=== PATIENT | female | born 1990 | race Asian ===

== ENCOUNTER 2019-12-15 16:56 | Emergency (ER) | payer MEDICAID ==
[~2019-12-15] VITALS: Ht 157.5 cm; Wt 58.2 kg
[2019-12-15 16:58] VITALS: BP 159/107
[2019-12-15] MEDS ORDERED: LISINOPRIL 20 MG TAB PO ONE (17:45)
[2019-12-15] MEDS ORDERED: LISINOPRIL 20 MG TAB ONE (17:52)
[2019-12-15 18:10] VITALS: BP 159/94
== END 2019-12-15 18:10 | disposition home or self-care (01) ==
LOC: MED 16:56
DX: R03.0 Elevated blood-pressure reading, without diagnosis of hypertension (principal); J30.2 Other seasonal allergic rhinitis
CPT/HCPCS: 81002; 81025; 99283

== ENCOUNTER 2019-12-18 12:40 | Emergency (ER) | payer MEDICAID ==
[~2019-12-18] VITALS: Ht 157.5 cm; Wt 55.8 kg
[2019-12-18 12:52] VITALS: BP 155/107
[2019-12-18 14:39] VITALS: BP 155/107
== END 2019-12-18 14:39 | disposition home or self-care (01) ==
LOC: MED 12:40
DX: R07.9 Chest pain, unspecified (principal); I10 Essential (primary) hypertension
CPT/HCPCS: 71045; 99283

== ENCOUNTER 2020-08-16 07:17 | Emergency (ER) | payer MEDICAID, SELFPAY ==
[~2020-08-16] VITALS: Ht 157.5 cm; Wt 54.4 kg
[2020-08-16 07:30] VITALS: BP 157/100
--- NOTE | 2020-08-16 07:40 | NUR ---
SEEN AND EXAMINED BY CASPER WITH ORDERS AND CARRIED OUT.
--- NOTE | 2020-08-16 08:05 | NUR ---
SWAB DONE AND SENT TO LAB
--- NOTE | 2020-08-16 08:10 | NUR ---
RESULTS BACK AND NOTED BY ERMD AND FOR D/C.
[2020-08-16 08:15] VITALS: BP 157/100
--- NOTE | 2020-08-16 08:15 | NUR ---
Patient discharged with v/s stable. Written and verbal after care instructions given and explained. Patient verbalized understanding. Ambulatory with steady gait. All questions addressed prior to discharge. Advised to follow up with PMD.
== END 2020-08-16 08:15 | disposition home or self-care (01) ==
LOC: MED 07:17
DX: M79.10 Myalgia, unspecified site (principal); I10 Essential (primary) hypertension; Z20.828 Contact with and (suspected) exposure to other viral communicable diseases
CPT/HCPCS: 81002; 81025; 99283; U0003

== ENCOUNTER 2020-09-10 17:37 | Emergency (ER) | payer MEDICAID, SELFPAY ==
[~2020-09-10] VITALS: Ht 157.5 cm; Wt 54.4 kg
[2020-09-10 17:42] VITALS: BP 132/71
--- NOTE | 2020-09-10 17:45 | NUR ---
GALI HERRERA A/W BED AMBULATORY
--- NOTE | 2020-09-10 18:25 | NUR ---
SEEN AND EXAMINED BY CASPER WITH ORDERS AND CARRIED OUT
[2020-09-10] MEDS ORDERED: ACETAMINOPHEN EXTRA STRENGTH 500 MG TAB PO ONE (18:30)
[2020-09-10] MEDS ORDERED: PANTOPRAZOLE 40 MG TABEC PO ONE (18:30)
--- NOTE | 2020-09-10 18:43 | NUR ---
MEDICATED PER ERMDS ORDER, TOLERATED WELL.
[2020-09-10 21:02] VITALS: BP 130/70
--- NOTE | 2020-09-10 21:02 | NUR ---
Patient discharged with v/s stable. Written and verbal after care instructions given and explained. Patient alert, oriented and verbalized understanding of instructions. Ambulatory with steady gait. All questions addressed prior to discharge. ID band removed. Patient advised to follow up with PMD. Rx of PROTONIX given. Patient educated on indication of medication including possible reaction and side effects. Opportunity to ask questions provided and answered.
== END 2020-09-10 21:02 | disposition home or self-care (01) ==
LOC: MED 17:37
DX: M54.6 Pain in thoracic spine (principal)
CPT/HCPCS: 71045; 81002; 81025; 93005; 99283

== ENCOUNTER 2022-01-06 10:54 | Emergency (ER) | payer MEDICAID ==
[~2022-01-06] VITALS: Ht 154.9 cm; Wt 55.3 kg
[2022-01-06 11:12] VITALS: BP 121/83
--- NOTE | 2022-01-06 11:35 | NUR ---
PT AMBULATED TO BED 07.
--- NOTE | 2022-01-06 11:48 | NUR ---
PT SWABBED FOR COVID. SPECIMEN WALKED TO LAB HANDED TO MAYLIN .
--- NOTE | 2022-01-06 12:05 | NUR ---
FLU SWAB COLLECTED AND WALKED TO LAB.
--- NOTE | 2022-01-06 12:20 | NUR ---
31/F C/O COUGH AND SUBJECTIVE FEVER X4 DAYS. PATIENT DENIES N/V/D OR RECENT SICK CONTACTS. REPORTS TAKING TYLENOL AT HOME FOR SYMPTOMS BUT DENIES RELIEF, STATES DAUGHTER BEGAN WITH SAME SYMPTOMS ONE DAY EARLIER.
[2022-01-06] MEDS ORDERED: PROM118S5 PO (12:42)
[2022-01-06] MEDS ORDERED: NAPR-54 PO (12:42)
[2022-01-06] MEDS ORDERED: PHEN177S23 PO (12:42)
--- NOTE | 2022-01-06 12:52 | NUR ---
Patient discharged with v/s stable. Written and verbal after care instructions ABOUT UPPER RESPIRATORY INFECTION given and explained. Patient alert, oriented and verbalized understanding of instructions. Ambulatory with steady gait. All questions addressed prior to discharge. ID band removed. Patient advised to follow up with PMD. Rx of NAPROXEN, PHENOL, AND PROMETHAZINE DM given. Patient educated on indication of medication including possible reaction and side effects. Opportunity to ask questions provided and answered.
--- NOTE | 2022-01-06 13:05 | NUR ---
The patient's care was reviewed and supervised by Mallika Sauer RN.
== END 2022-01-06 12:52 | disposition home or self-care (01) ==
LOC: MED 10:54
DX: B34.9 Viral infection, unspecified (principal); Z20.822 Contact with and (suspected) exposure to COVID-19; I10 Essential (primary) hypertension; Z79.899 Other long term (current) drug therapy
CPT/HCPCS: 99283

== ENCOUNTER 2022-01-16 17:09 | Emergency (ER) | payer MEDICAID ==
[~2022-01-16] VITALS: Ht 157.5 cm; Wt 54.9 kg
[~2022-01-16 17:09] MED LIST: NAPR-54 PO; PHEN177S23 PO; PROM118S5 PO
[2022-01-16 17:17] VITALS: BP 129/99
--- NOTE | 2022-01-16 17:28 | NUR ---
PT AMB TO BED 7.
--- NOTE | 2022-01-16 17:36 | NUR ---
31 Y/O FEMALE C/O INTERMITENT LEFT UPPER BACK PAIN RADIATING TO LEFT CHEST X LAST NIGHT AND C/O COUGH, HEADACHE X 2 WEEKS. COVID TESTED NEGATIVE 2 WEEKS AGO. P 103,BP 129/99 AT THIS TIME. PT DENIES FEVER OR CHILLS. PT DENIES SOB, SANZ. PT IS ABLE TO SPEAK IN FULL SENTENCES. PT IS ALERT AND ORIENTED X4. BED IN LOWEST POSITION. BED RAIL X1. PMH: HTN MED: LISINOPRIL 5MG DAILY
[2022-01-16] MEDS ORDERED: IBUP-2213 PO (19:03)
[2022-01-16 19:09] VITALS: BP 129/99
== END 2022-01-16 19:06 | disposition home or self-care (01) ==
LOC: MED 17:09
DX: R07.9 Chest pain, unspecified (principal); R05.9 Cough, unspecified; I10 Essential (primary) hypertension; Z79.899 Other long term (current) drug therapy
CPT/HCPCS: 71045; 81002; 81025; 99283; Q0092

== ENCOUNTER 2022-02-13 09:31 | Emergency (ER) | payer MEDICAID ==
[~2022-02-13] VITALS: Ht 157.5 cm; Wt 55.3 kg
[~2022-02-13 09:31] MED LIST changes: +IBUP-2213 PO
[2022-02-13 09:43] VITALS: BP 134/91
--- NOTE | 2022-02-13 09:54 | NUR ---
PATIENT TO ROOM 8.
--- NOTE | 2022-02-13 09:54 | NUR ---
31 Y/O FEMALE BIB SELF C/O PRODUCTIVE COUGH WITH CLEAR EXUDATE, FATIGUE AND "NOT FEELING WELL" X2 WEEKS, GENERALIZED BODY PAIN 7/10 ACHING. DENIES ANY MEDICATION FOR PAIN. STATED THAT SHE VISITED HER PCP AND WAS STATED TO HAVE MUSCLE STRAIN. LUNG SOUNDS BILATERAL CLEAR. NOTED WITH NAUSEA STATED THAT SHE WAS DRINKING A FEW DAYS AGO. DENIES ANY V/D/FEVER NKA PMH: HTN
--- NOTE | 2022-02-13 10:05 | NUR ---
PATIENT IN GOWN URINE OBTAINED.
--- NOTE | 2022-02-13 10:11 | NUR ---
DR SMITH AT BEDSIDE FOR FURTHER EVAL
[2022-02-13] MEDS ORDERED: NACL 0.9% 1,000 ML IV ONE (10:20)
--- NOTE | 2022-02-13 10:39 | NUR ---
URINE WALKED TO LAB HANDED TO BARB
--- NOTE | 2022-02-13 10:42 | NUR ---
HANDED BLOOD SAMPLES TO LILI
--- NOTE | 2022-02-13 10:43 | NUR ---
20G IV CATH PLACED L AC. LABS OBTAINED AND WALKED TO LAB
--- NOTE | 2022-02-13 10:53 | NUR ---
SWABS WALKED TO LAB, HANDED TO LILI
--- NOTE | 2022-02-13 10:54 | NUR ---
RESP PANEL COLLECTED AND WALKED TO LAB
[2022-02-13 10:58] LABS: BASOPHILS % (AUTO) 0.8 % (0.0-2.0); EOSINOPHILS # (AUTO) 0.1 K/uL (0-0.4); HEMATOCRIT 40.7 % (36-48); HEMOGLOBIN 13.6 g/dL (12.0-16.0); LYMPHOCYTES # (AUTO) 1.4 K/uL (2.5-16.5); LYMPHOCYTES % (AUTO) 26.3 % (20.5-51.1); MEAN CORPUSCULAR HEMOGLOBIN 30 pg (27-31); MEAN CORPUSCULAR HGB CONC 33 g/dL (33-37); MEAN CORPUSCULAR VOLUME 89.8 fL (80-94); MONOCYTES # (AUTO) 0.3 K/uL (0.8-1.0); MONOCYTES % (AUTO) 5.8 % (1.7-9.3); NEUTROPHILS # (AUTO) 3.3 K/uL (1.8-7.7); NEUTROPHILS % (AUTO) 65.1 % (42.2-75.2); PLATELET COUNT (AUTO) 212 K/uL (140-450); RED BLOOD CELL COUNT(AUTO) 4.53 MIL/uL (4.20-5.40); RED CELL DISTRIBUTION WIDTH 13.1 % (11.6-13.7); WHITE BLOOD COUNT (AUTO) 5.1 K/uL (4.8-10.8)
[2022-02-13 11:19] LABS: APPEARANCE,URINE CLEAR (CLEAR); BILIRUBIN,URINE NEGATIVE (NEGATIVE); BLOOD, URINE NEGATIVE (NEGATIVE); COLOR,URINE YELLOW (YELLOW); LEUKOCYTE ESTERASE ,URINE NEGATIVE (NEGATIVE); NITRITE, URINE NEGATIVE (NEGATIVE); UGLUCOSE NEGATIVE (NEGATIVE)
--- NOTE | 2022-02-13 11:20 | NUR ---
PT AMBULATED TO BATHROOM WITH STEADY GAIT
[2022-02-13 11:32] LABS: ALBUMIN 3.7 g/dL (3.4-5.0); ANION GAP 9.5 (8-16); CARBON DIOXIDE 29.5 mmol/L (21-32); CREATININE 0.6 mg/dL (0.6-1.3); TOTAL BILIRUBIN 0.5 mg/dL (0.0-1.0)
--- NOTE | 2022-02-13 11:50 | NUR ---
PATIENT STATES 5/10 PAIN . IN BED RESTING RESP EVEN AND UNLABORED. SIDE RAILS UP X1
[2022-02-13 11:57] VITALS: BP 135/81
--- NOTE | 2022-02-13 12:54 | NUR ---
Patient discharged with v/s stable. Written and verbal after care instructions ABOUT VIRAL ILLNESS given and explained. Patient verbalized understanding. Carried with steady gait. All questions addressed prior to discharge. Advised to follow up with PMD.
[2022-02-14] MEDS ORDERED: ONDA-188 PO (15:32)
== END 2022-02-13 12:54 | disposition home or self-care (01) ==
LOC: MED 09:31
DX: B34.9 Viral infection, unspecified (principal); Z20.822 Contact with and (suspected) exposure to COVID-19; I10 Essential (primary) hypertension
CPT/HCPCS: 36415; 80053; 81003; 81025; 85025; 87635; 96360; 99283; C9803; J7030

== ENCOUNTER 2022-02-14 14:35 | Emergency (ER) | payer MEDICAID ==
[~2022-02-14] VITALS: Ht 157.5 cm; Wt 55.1 kg
[2022-02-14 14:39] VITALS: BP 132/99
--- NOTE | 2022-02-14 14:49 | NUR ---
DR. SMITH EVALUATING PATIENT BEDSIDE
--- NOTE | 2022-02-14 14:55 | NUR ---
31/F PRESENTS TO ED WITH C/O COUGH, NAUSEA AND GENERALIZED WEAKNESS X3 WEEKS. PATIENT REPORTS BEING SEEN YESTERDAY HERE FOR SAME SYMPTOMS BUT REPORTS NO RELIEF. PATIENT REPORTS SHE "ALMOST PASSED OUT" THIS MORNING AND IT CONCERNED HER, PATIENT DENIES CP, SOB, FEVERS OR CHILLS.
[2022-02-14] MEDS ORDERED: ONDA-188 PO (15:32)
[2022-02-14 15:52] VITALS: BP 132/99
--- NOTE | 2022-02-14 15:52 | NUR ---
Patient discharged with v/s stable. Written and verbal after care instructions ABOUT VIRAL ILLNESS given and explained. Patient alert, oriented and verbalized understanding of instructions. Ambulatory with steady gait. All questions addressed prior to discharge. ID band removed. Patient advised to follow up with PMD. Rx of ZOFRAN given. Patient educated on indication of medication including possible reaction and side effects. Opportunity to ask questions provided and answered.
== END 2022-02-14 15:52 | disposition home or self-care (01) ==
LOC: MED 14:35
DX: B34.9 Viral infection, unspecified (principal); I10 Essential (primary) hypertension; Z72.89 Other problems related to lifestyle
CPT/HCPCS: 71045; 99283

== ENCOUNTER 2022-03-19 21:05 | Emergency (ER) | payer MEDICAID ==
[~2022-03-19] VITALS: Ht 157.5 cm; Wt 56.2 kg
[~2022-03-19 21:05] MED LIST changes: +ONDA-188 PO
[2022-03-19 21:30] VITALS: BP 147/96
--- NOTE | 2022-03-19 23:12 | NUR ---
Patient ambulated to bed 9.
--- NOTE | 2022-03-19 23:20 | NUR ---
RECEIVED IN BED 9 WITH C/O SORE THROAT X 2 DAYS PMHx: HTN
--- NOTE | 2022-03-20 00:45 | NUR ---
patito swab obtained and sent to lab
[2022-03-20] MEDS ORDERED: KETOROLAC 30 MG/ML VIAL IM ONE (01:05)
[2022-03-20] MEDS ORDERED: NAPR-1704 PO (01:30)
[2022-03-20 01:35] VITALS: BP 147/96
== END 2022-03-20 01:35 | disposition home or self-care (01) ==
LOC: MED 21:05
DX: S09.90XA Unspecified injury of head, initial encounter (principal); Z20.822 Contact with and (suspected) exposure to COVID-19; J06.9 Acute upper respiratory infection, unspecified; I10 Essential (primary) hypertension; Z79.1 Long term (current) use of non-steroidal anti-inflammatories (NSAID); Z79.2 Long term (current) use of antibiotics; W22.8XXA Striking against or struck by other objects, initial encounter; Y92.89 Other specified places as the place of occurrence of the external cause; Y93.89 Activity, other specified; Y99.8 Other external cause status
CPT/HCPCS: 87426; 96372; 99283; J1885

== ENCOUNTER 2022-06-26 13:54 | Emergency (ER) | payer MEDICAID ==
[~2022-06-26] VITALS: Ht 157.5 cm; Wt 56.7 kg
[~2022-06-26 13:54] MED LIST changes: +NAPR-1704 PO
[2022-06-26 14:00] VITALS: BP 140/91
[2022-06-26] MEDS ORDERED: MENT7.6L6 PO (15:41)
--- NOTE | 2022-06-26 16:02 | NUR ---
Patient discharged with v/s stable. Written and verbal after care instructions given and explained. Patient alert, oriented and verbalized understanding of instructions. Ambulatory with steady gait. All questions addressed prior to discharge. ID band removed. Patient advised to follow up with PMD. Rx of MENTHTOL COUGH DROPS given. Opportunity to ask questions provided and answered.
== END 2022-06-26 16:01 | disposition home or self-care (01) ==
LOC: MED 13:54
DX: J06.9 Acute upper respiratory infection, unspecified (principal); R03.0 Elevated blood-pressure reading, without diagnosis of hypertension
CPT/HCPCS: 99283

== ENCOUNTER 2022-09-14 00:03 | Emergency (ER) | payer MEDICAID ==
[~2022-09-14] VITALS: Ht 157.5 cm; Wt 55.3 kg
[~2022-09-14 00:03] MED LIST changes: +MENT7.6L6 PO
[2022-09-14 00:04] VITALS: BP 148/102
--- NOTE | 2022-09-14 00:08 | NUR ---
TO LOBBY A/W BED AMBULATORY
[2022-09-14 00:10] VITALS: BP 148/102
[2022-09-14] MEDS ORDERED: cefTRIAXone 1,000 MG in LIDOCAINE MPF 1% 2.1 ML IM ONE (01:40)
[2022-09-14 02:00] LABS: APPEARANCE,URINE CLEAR (CLEAR); BILIRUBIN,URINE NEGATIVE (NEGATIVE); BLOOD, URINE NEGATIVE (NEGATIVE); COLOR,URINE YELLOW (YELLOW); LEUKOCYTE ESTERASE ,URINE NEGATIVE (NEGATIVE); NITRITE, URINE NEGATIVE (NEGATIVE); UGLUCOSE NEGATIVE (NEGATIVE)
[2022-09-14] MEDS ORDERED: ONDA-188 SL (02:51)
== END 2022-09-14 02:55 | disposition home or self-care (01) ==
LOC: MED 00:03
DX: A08.4 Viral intestinal infection, unspecified (principal); R11.2 Nausea with vomiting, unspecified; I10 Essential (primary) hypertension; Z79.899 Other long term (current) drug therapy
CPT/HCPCS: 81003; 81025; 99283

== ENCOUNTER 2023-01-06 09:19 | Emergency (ER) | payer MEDICAID ==
[~2023-01-06] VITALS: Ht 152.4 cm; Wt 58.1 kg
[~2023-01-06 09:19] MED LIST changes: +ONDA-188 SL
[2023-01-06 09:32] VITALS: BP 152/96
--- NOTE | 2023-01-06 09:37 | NUR ---
AMB TO BED 3
[2023-01-06] MEDS ORDERED: FAMOTIDINE 20 MG TAB PO ONE (10:05)
[2023-01-06] MEDS ORDERED: DICYCLOMINE HCL LIQUID 20 MG, ALUMINUM HYD/MAG/SIMETHICONE 30 ML, LIDOCAINE VISCOUS 2% ... PO ONE ×3 (10:05)
[2023-01-06 10:26] LABS: BASOPHILS % (AUTO) 0.6 % (0.0-2.0); EOSINOPHILS # (AUTO) 0.2 K/uL (0-0.4); EOSINOPHILS % (AUTO) 2.9 % (0.0-4.0); HEMATOCRIT 41.4 % (36-48); HEMOGLOBIN 13.8 g/dL (12.0-16.0); LYMPHOCYTES # (AUTO) 2.4 K/uL (2.5-16.5); LYMPHOCYTES % (AUTO) 35.1 % (20.5-51.1); MEAN CORPUSCULAR HEMOGLOBIN 30 pg (27-31); MEAN CORPUSCULAR HGB CONC 33 g/dL (33-37); MEAN CORPUSCULAR VOLUME 90.2 fL (80-94); MONOCYTES # (AUTO) 0.6 K/uL (0.8-1.0); MONOCYTES % (AUTO) 8.2 % (1.7-9.3); NEUTROPHILS # (AUTO) 3.7 K/uL (1.8-7.7); NEUTROPHILS % (AUTO) 53.2 % (42.2-75.2); PLATELET COUNT (AUTO) 169 K/uL (140-450); RED BLOOD CELL COUNT(AUTO) 4.59 MIL/uL (4.20-5.40); RED CELL DISTRIBUTION WIDTH 13.2 % (11.6-13.7)
[2023-01-06] MEDS ORDERED: DICYCLOMINE HCL LIQUID 10 MG/5 ML UDC ONE (10:27)
[2023-01-06] MEDS ORDERED: ALUMINUM HYD/MAG/SIMETHICONE 30 ML UDC ONE (10:27)
--- NOTE | 2023-01-06 10:33 | NUR ---
ASSUMED PATIENT CARE, NURSING ASSESSMENT COMPLETED. SEEN AND EVALUATED BY GREG CHARLES COMPLETED.
[2023-01-06 11:16] LABS: ALBUMIN 3.8 g/dL (3.4-5.0); ASPARTATE AMINOTRANSFERASE 17 U/L (15-37); CARBON DIOXIDE 25.6 mmol/L (21-32); CHLORIDE 104 mmol/L (98-107); CREATININE 0.7 mg/dL (0.6-1.3); GFR ARICAN-AMERICAN 126 mL/min (>90); GLUCOSE 96 mg/dL (74-106); POTASSIUM 3.6 mmol/L (3.5-5.1); SODIUM SERUM 137 mmol/L (136-145); TOTAL BILIRUBIN 0.6 mg/dL (0.0-1.0); UREA NITROGEN, BLOOD 8 mg/dL (7-18)
[2023-01-06] MEDS ORDERED: KETOROLAC 30 MG/ML VIAL IM ONE (12:25)
[2023-01-06] MEDS ORDERED: IBUP-2213 PO (13:06)
[2023-01-06] MEDS ORDERED: LISI5TAB18 PO (13:31)
[2023-01-06 13:35] VITALS: BP 135/87
--- NOTE | 2023-01-06 13:36 | NUR ---
Patient discharged with v/s stable. Written and verbal after care instructions given and explained. Patient alert, oriented and verbalized understanding of instructions. Ambulatory with steady gait. All questions addressed prior to discharge. ID band removed. Patient advised to follow up with PMD. Rx of IBUPROFEN, LISINOPRIL given. Patient educated on indication of medication including possible reaction and side effects. Opportunity to ask questions provided and answered.
== END 2023-01-06 13:35 | disposition home or self-care (01) ==
LOC: MED 09:19
DX: R07.9 Chest pain, unspecified (principal); I10 Essential (primary) hypertension; F41.9 Anxiety disorder, unspecified; Z79.899 Other long term (current) drug therapy
CPT/HCPCS: 36415; 71046; 80053; 81025; 84484; 85025; 93005; 96372; 99285; J1885

== ENCOUNTER 2023-01-11 15:46 | Emergency (ER) | payer MEDICAID ==
[~2023-01-11] VITALS: Ht 157.5 cm; Wt 55.8 kg
[~2023-01-11 15:46] MED LIST changes: +LISI5TAB18 PO
[2023-01-11 15:53] VITALS: BP 130/89
[2023-01-11] MEDS ORDERED: NAPR-54 PO (16:53)
--- NOTE | 2023-01-11 17:21 | NUR ---
Patient discharged with v/s stable. Written and verbal after care instructions ABOUT CHEST WALL PAIN given and explained. Patient alert, oriented and verbalized understanding of instructions. Ambulatory with steady gait. All questions addressed prior to discharge. ID band removed. Patient advised to follow up with PMD. Rx of NAPROXEN given. Patient educated on indication of medication including possible reaction and side effects. Opportunity to ask questions provided and answered.
== END 2023-01-11 17:21 | disposition home or self-care (01) ==
LOC: MED 15:46
DX: G89.29 Other chronic pain (principal); R07.9 Chest pain, unspecified; I10 Essential (primary) hypertension; Z79.899 Other long term (current) drug therapy; Z79.1 Long term (current) use of non-steroidal anti-inflammatories (NSAID)
CPT/HCPCS: 81025; 93005; 99283

== ENCOUNTER 2023-03-12 02:28 | Emergency (ER) | payer MEDICAID ==
[~2023-03-12] VITALS: Ht 157.5 cm; Wt 54.4 kg
[~2023-03-12 02:28] MED LIST changes: +HYDR25CA10 PO; +IBUP-1842 PO
[2023-03-12 02:32] VITALS: BP 134/99
--- NOTE | 2023-03-12 02:40 | NUR ---
PT TO BED 4
--- NOTE | 2023-03-12 02:42 | NUR ---
Patient resting in bed, A/Ox4, chest rise and fall symmetrical, no s/s of distress, on monitor.
--- NOTE | 2023-03-12 02:45 | NUR ---
DR. MOTA SPEAKING WITH PATIENT.
[2023-03-12] MEDS ORDERED: ACETAMINOPHEN EXTRA STRENGTH 500 MG TAB PO ONE (03:00)
[2023-03-12] MEDS ORDERED: diazePAM 5 MG TAB PO ONE (03:00)
[2023-03-12] MEDS ORDERED: KETOROLAC 30 MG/ML VIAL IM ONE (03:00)
[2023-03-12 03:26] LABS: BASOPHILS # (AUTO) 0.1 K/uL (0.00-0.22); BASOPHILS % (AUTO) 0.6 % (0.0-2.0); EOSINOPHILS # (AUTO) 0.3 K/uL (0-0.4); HEMATOCRIT 36.2 % (36-48); HEMOGLOBIN 12.1 g/dL (12.0-16.0); LYMPHOCYTES # (AUTO) 2.3 K/uL (2.5-16.5); LYMPHOCYTES % (AUTO) 25.7 % (20.5-51.1); MEAN CORPUSCULAR HEMOGLOBIN 30 pg (27-31); MEAN CORPUSCULAR HGB CONC 33 g/dL (33-37); MEAN CORPUSCULAR VOLUME 89.8 fL (80-94); MONOCYTES # (AUTO) 0.8 K/uL (0.8-1.0); MONOCYTES % (AUTO) 8.6 % (1.7-9.3); NEUTROPHILS # (AUTO) 5.6 K/uL (1.8-7.7); NEUTROPHILS % (AUTO) 62.1 % (42.2-75.2); PLATELET COUNT (AUTO) 170 K/uL (140-450); RED BLOOD CELL COUNT(AUTO) 4.03 MIL/uL (4.20-5.40); RED CELL DISTRIBUTION WIDTH 12.7 % (11.6-13.7)
--- NOTE | 2023-03-12 03:32 | NUR ---
Handoff report given to PM Shift Nurse Elsie ARRINGTON. PM Shift Nurse Elsie RN verbalized understanding of report, no further questions.
[2023-03-12 03:56] LABS: ALBUMIN 3.5 g/dL (3.4-5.0); ANION GAP 13.5 (8-16); ASPARTATE AMINOTRANSFERASE 14 U/L (15-37); CHLORIDE 104 mmol/L (98-107); CREATININE 0.7 mg/dL (0.6-1.3); GFR ARICAN-AMERICAN 126 mL/min (>90); GLUCOSE 83 mg/dL (74-106); POTASSIUM 3.5 mmol/L (3.5-5.1); SODIUM SERUM 138 mmol/L (136-145); TOTAL BILIRUBIN 0.3 mg/dL (0.0-1.0); UREA NITROGEN, BLOOD 16 mg/dL (7-18)
[2023-03-12] MEDS ORDERED: ACET-10509 PO (04:03)
--- NOTE | 2023-03-12 04:05 | NUR ---
pt denies ongoing pain, no new or worsening symptoms.
[2023-03-12 04:17] VITALS: BP 110/81
== END 2023-03-12 04:11 | disposition home or self-care (01) ==
LOC: MED 02:28
DX: G89.29 Other chronic pain (principal); M54.6 Pain in thoracic spine; R07.9 Chest pain, unspecified; I10 Essential (primary) hypertension; Z79.899 Other long term (current) drug therapy; Z79.1 Long term (current) use of non-steroidal anti-inflammatories (NSAID)
CPT/HCPCS: 36415; 71045; 80053; 81025; 84484; 85025; 85379; 93005; 96372; 99285; J1885; Q0092

== ENCOUNTER 2023-05-20 09:03 | Emergency (ER) | payer MEDICAID ==
[~2023-05-20] VITALS: Ht 157.5 cm; Wt 56.7 kg
[~2023-05-20 09:03] MED LIST changes: +ACET-10509 PO
[2023-05-20 09:55] VITALS: BP 147/110; PULSE 86; RESP 14; TEMP 98.1; O2SAT 100
[2023-05-20 11:39] LABS: APPEARANCE,URINE CLEAR (CLEAR); BILIRUBIN,URINE NEGATIVE (NEGATIVE); BLOOD, URINE TRACE-I (NEGATIVE); COLOR,URINE YELLOW (YELLOW); LEUKOCYTE ESTERASE ,URINE 1+ (NEGATIVE); NITRITE, URINE NEGATIVE (NEGATIVE); PH,URINE 5.5 (5.0-9.0); PROTEIN,URINE NEGATIVE (NEGATIVE); UGLUCOSE NEGATIVE (NEGATIVE); UROBILINOGEN,URINE 0.2 EU/dL (0.2 - 1)
[2023-05-20 11:49] LABS: BACTERIA,URINE 1+ /HPF (None Seen); RBC,URINE 0-5 /HPF (0-5); SQUAMOUS EPITHELIAL CELL,UR 0-3 (FEW) /LPF (0-3 (FEW))
[2023-05-20] MEDS ORDERED: CEPH-588 PO (12:20)
[2023-05-20] MEDS ORDERED: LID5T TP (12:20)
[2023-05-20 12:47] VITALS: BP 145/80; PULSE 82; RESP 14; TEMP 97.9; O2SAT 100
== END 2023-05-20 12:47 | disposition home or self-care (01) ==
LOC: MED 09:03
DX: R07.89 Other chest pain (principal); N39.0 Urinary tract infection, site not specified; M25.512 Pain in left shoulder; I10 Essential (primary) hypertension; Z79.899 Other long term (current) drug therapy
CPT/HCPCS: 71045; 81001; 81025; 87086; 93005; 99285

== ENCOUNTER 2023-07-02 08:40 | Emergency (ER) | payer MEDICAID ==
[~2023-07-02] VITALS: Ht 160 cm; Wt 55.3 kg
[~2023-07-02 08:40] MED LIST changes: +CEPH-588 PO; +LID5T TP
[2023-07-02 08:54] VITALS: BP 140/95; PULSE 106; RESP 18; TEMP 97; O2SAT 98
[2023-07-02 09:38] LABS: BASOPHILS % (AUTO) 0.7 % (0.0-2.0); EOSINOPHILS # (AUTO) 0.3 K/uL (0-0.4); EOSINOPHILS % (AUTO) 5.6 % (0.0-4.0); HEMATOCRIT 40.3 % (36-48); HEMOGLOBIN 13.2 g/dL (12.0-16.0); LYMPHOCYTES # (AUTO) 1.5 K/uL (2.5-16.5); LYMPHOCYTES % (AUTO) 28.2 % (20.5-51.1); MEAN CORPUSCULAR HEMOGLOBIN 30 pg (27-31); MEAN CORPUSCULAR HGB CONC 33 g/dL (33-37); MEAN CORPUSCULAR VOLUME 90.7 fL (80-94); MONOCYTES # (AUTO) 0.3 K/uL (0.8-1.0); MONOCYTES % (AUTO) 6.3 % (1.7-9.3); NEUTROPHILS # (AUTO) 3.1 K/uL (1.8-7.7); NEUTROPHILS % (AUTO) 59.2 % (42.2-75.2); PLATELET COUNT (AUTO) 195 K/uL (140-450); RED BLOOD CELL COUNT(AUTO) 4.44 MIL/uL (4.20-5.40); RED CELL DISTRIBUTION WIDTH 12.9 % (11.6-13.7); WHITE BLOOD COUNT (AUTO) 5.2 K/uL (4.8-10.8)
[2023-07-02 09:53] LABS: ANION GAP 12.2 (8-16); CARBON DIOXIDE 28.7 mmol/L (21-32); CREATININE 0.7 mg/dL (0.6-1.3); POTASSIUM 3.9 mmol/L (3.5-5.1)
[2023-07-02 10:20] VITALS: BP 111/72; PULSE 74; RESP 20; TEMP 98.2; O2SAT 99
== END 2023-07-02 10:20 | disposition home or self-care (01) ==
LOC: MED 08:40
DX: M54.10 Radiculopathy, site unspecified (principal); R20.2 Paresthesia of skin; I10 Essential (primary) hypertension; Z79.899 Other long term (current) drug therapy; Z79.2 Long term (current) use of antibiotics; Z79.1 Long term (current) use of non-steroidal anti-inflammatories (NSAID)
CPT/HCPCS: 36415; 80048; 84484; 85025; 93005; 99284

== ENCOUNTER 2023-07-29 13:57 | Emergency (ER) | payer MEDICAID ==
[~2023-07-29] VITALS: Ht 162.6 cm; Wt 65.8 kg
[2023-07-29 14:33] VITALS: BP 140/102; PULSE 84; RESP 17; TEMP 97.7; O2SAT 98
[2023-07-29] MEDS ORDERED: NACL 0.9% 1,000 ML IV SCH (14:45)
[2023-07-29] MEDS ORDERED: KETOROLAC 30 MG/ML VIAL IVP ONE (14:45)
[2023-07-29] MEDS ORDERED: lisinopriL 20 MG TAB PO ONE (14:45)
[2023-07-29] MEDS ORDERED: ONDANSETRON 4 MG/2 ML VIAL IVP ONE (14:45)
[2023-07-29] MEDS ORDERED: CRUSHER, PILL MC ONE (15:38)
[2023-07-29 15:50] LABS: BASOPHILS % (AUTO) 0.6 % (0.0-2.0); EOSINOPHILS # (AUTO) 0.2 K/uL (0-0.4); EOSINOPHILS % (AUTO) 3.7 % (0.0-4.0); HEMATOCRIT 40.7 % (36-48); HEMOGLOBIN 13.5 g/dL (12.0-16.0); LYMPHOCYTES # (AUTO) 1.1 K/uL (2.5-16.5); MEAN CORPUSCULAR HEMOGLOBIN 30 pg (27-31); MEAN CORPUSCULAR HGB CONC 33 g/dL (33-37); MEAN CORPUSCULAR VOLUME 90.6 fL (80-94); MONOCYTES # (AUTO) 0.3 K/uL (0.8-1.0); MONOCYTES % (AUTO) 6.2 % (1.7-9.3); NEUTROPHILS # (AUTO) 3.3 K/uL (1.8-7.7); NEUTROPHILS % (AUTO) 67.5 % (42.2-75.2); PLATELET COUNT (AUTO) 200 K/uL (140-450); RED BLOOD CELL COUNT(AUTO) 4.49 MIL/uL (4.20-5.40); RED CELL DISTRIBUTION WIDTH 12.5 % (11.6-13.7); WHITE BLOOD COUNT (AUTO) 4.9 K/uL (4.8-10.8)
[2023-07-29 16:05] LABS: ALBUMIN 3.7 g/dL (3.4-5.0); ANION GAP 9.8 (8-16); CALCIUM 8.6 mg/dL (8.5-10.1); CARBON DIOXIDE 29.3 mmol/L (21-32); CREATININE 0.7 mg/dL (0.6-1.3); POTASSIUM 4.1 mmol/L (3.5-5.1); TOTAL BILIRUBIN 0.4 mg/dL (0.0-1.0); TOTAL PROTEIN, SERUM 7.5 g/dL (6.4-8.2)
[2023-07-29 16:10] VITALS: TEMP 97.7
[2023-07-29 16:11] LABS: APPEARANCE,URINE CLEAR (CLEAR); BILIRUBIN,URINE NEGATIVE (NEGATIVE); BLOOD, URINE NEGATIVE (NEGATIVE); COLOR,URINE YELLOW (YELLOW); LEUKOCYTE ESTERASE ,URINE NEGATIVE (NEGATIVE); NITRITE, URINE POSITIVE (NEGATIVE); PH,URINE 7.5 (5.0-9.0); PROTEIN,URINE TRACE (NEGATIVE); UGLUCOSE NEGATIVE (NEGATIVE); UROBILINOGEN,URINE 0.2 EU/dL (0.2 - 1)
[2023-07-29] MEDS ORDERED: ACETAMINOPHEN 325 MG TAB PO ONE (16:30)
[2023-07-29] MEDS ORDERED: METOCLOPRAMIDE 10 MG/2 ML INJ VIAL IVP ONE (16:35)
[2023-07-29 16:56] LABS: BACTERIA,URINE 2+ /HPF (None Seen); MUCUS,URINE 1+ /LPF (None Seen); RBC,URINE 0-5 /HPF (0-5); SQUAMOUS EPITHELIAL CELL,UR 4-10 (MOD) /LPF (0-3 (FEW)); TRICHOMONAS,URINE None Seen /HPF (None Seen); URINE AMORPHOUS PHOSPHATES 2+ /HPF (None Seen); WBC,URINE 0-5 /HPF (0-5); YEAST,URINE None Seen /HPF (None Seen)
[2023-07-29] MEDS ORDERED: METO-485 PO (17:16)
[2023-07-29] MEDS ORDERED: NITR100C7 PO (17:16)
[2023-07-29] MEDS ORDERED: LISI5TAB18 PO (17:16)
[2023-07-29 17:36] VITALS: BP 132/79; PULSE 74; RESP 17; O2SAT 98
== END 2023-07-29 17:36 | disposition home or self-care (01) ==
LOC: MED 13:57
DX: I10 Essential (primary) hypertension (principal); R51.9 Headache, unspecified; N39.0 Urinary tract infection, site not specified; Z79.899 Other long term (current) drug therapy; Z79.2 Long term (current) use of antibiotics; Z79.1 Long term (current) use of non-steroidal anti-inflammatories (NSAID)
CPT/HCPCS: 36415; 80053; 81001; 81025; 85025; 87086; 96361; 96374; 96375; 99284; J1885; J2405; J2765

== ENCOUNTER 2023-09-16 06:03 | Emergency (ER) | payer MEDICAID ==
[~2023-09-16] VITALS: Ht 152.4 cm; Wt 54.0 kg
[~2023-09-16 06:03] MED LIST changes: +METO-485 PO; +NITR100C7 PO
[2023-09-16 06:47] VITALS: BP 124/90; PULSE 118; RESP 20; TEMP 98.1; O2SAT 98
[2023-09-16] MEDS ORDERED: NACL 0.9% 1,000 ML IV ONE (07:10)
[2023-09-16] MEDS ORDERED: KETOROLAC 30 MG/ML VIAL IVP ONE (07:10)
[2023-09-16] MEDS ORDERED: PRED50TA2 PO (07:37)
[2023-09-16] MEDS ORDERED: IBUP-2213 PO (07:37)
[2023-09-16 09:39] VITALS: BP 124/90; PULSE 118; RESP 20; TEMP 98.1; O2SAT 98
== END 2023-09-16 09:40 | disposition home or self-care (01) ==
LOC: MED 06:03
DX: J02.9 Acute pharyngitis, unspecified (principal); I10 Essential (primary) hypertension; Z79.899 Other long term (current) drug therapy; Z79.2 Long term (current) use of antibiotics; Z79.1 Long term (current) use of non-steroidal anti-inflammatories (NSAID)
CPT/HCPCS: 81002; 81025; 96361; 96374; 99283; J1885; J7030

== ENCOUNTER 2023-10-16 12:58 | Emergency (ER) | payer MEDICAID ==
[~2023-10-16] VITALS: Ht 157.5 cm; Wt 55.3 kg
[~2023-10-16 12:58] MED LIST changes: +MENT7.6L13 PO; -MENT7.6L6 PO; +PRED50TA2 PO
[2023-10-16 13:28] VITALS: BP 125/90; PULSE 88; RESP 16; TEMP 99.5; O2SAT 100
[2023-10-16 16:10] VITALS: BP 125/90; PULSE 88; RESP 16; TEMP 99.5; O2SAT 100
== END 2023-10-16 16:10 | disposition home or self-care (01) ==
LOC: MED 12:58
DX: R42 Dizziness and giddiness (principal); I10 Essential (primary) hypertension; Z79.899 Other long term (current) drug therapy
CPT/HCPCS: 81002; 81025; 99282